=== PATIENT | male | born 1990 | race Caucasian/White ===

== ENCOUNTER 2023-07-08 16:38 | Emergency (ER) | payer MEDICAID ==
[~2023-07-08] VITALS: Ht 180.3 cm; Wt 108.9 kg
[2023-07-08 16:46] VITALS: BP 156/88; PULSE 83; RESP 18; TEMP 98.2; O2SAT 98
[2023-07-08] MEDS ORDERED: LIDOCAINE MPF 1% 10 MG/ML VIAL INJ ONE (17:15)
[2023-07-08] MEDS ORDERED: IBUPROFEN 600 MG TAB PO ONE (17:15)
[2023-07-08] MEDS ORDERED: CEPH500C16 PO (17:50)
[2023-07-08] MEDS ORDERED: BACI-418 TP (17:50)
[2023-07-08] MEDS ORDERED: SULF-59 PO (17:50)
[2023-07-08] MEDS ORDERED: IBUP-2213 PO (17:50)
== END 2023-07-08 17:56 | disposition home or self-care (01) ==
LOC: MED 16:38
DX: L03.221 Cellulitis of neck (principal); Z79.899 Other long term (current) drug therapy
CPT/HCPCS: 10060; 99284; J2001

== ENCOUNTER 2023-08-06 18:28 | Emergency (ER) | payer MEDICAID ==
[~2023-08-06] VITALS: Ht 180.3 cm; Wt 108.9 kg
[~2023-08-06 18:28] MED LIST: BACI-418 TP; CEPH500C16 PO; IBUP-2213 PO; SULF-59 PO
[2023-08-06 18:35] VITALS: BP 145/90; PULSE 82; RESP 16; TEMP 98.9; O2SAT 96
[2023-08-06] MEDS: DEXAMETHASONE 10 MG/ML VIAL IM ONE (19:16)
[2023-08-06 19:38] LABS: FLU A ANTIGEN negative (NEGATIVE)
[2023-08-06] MEDS ORDERED: AMOX500C25 PO (19:38)
[2023-08-06] MEDS ORDERED: IBUP-2213 PO (19:38)
[2023-08-06 19:39] LABS: FLU B ANTIGEN NEGATIVE (NEGATIVE)
== END 2023-08-06 19:47 | disposition home or self-care (01) ==
LOC: MED 18:28
DX: J02.0 Streptococcal pharyngitis (principal); Z20.822 Contact with and (suspected) exposure to COVID-19; Z79.899 Other long term (current) drug therapy
CPT/HCPCS: 87081; 87426; 87804; 96372; 99283; J1100

== ENCOUNTER 2023-08-26 20:48 | Emergency (ER) | payer SELFPAY ==
[~2023-08-26] VITALS: Ht 180.3 cm; Wt 108.9 kg
[~2023-08-26 20:48] MED LIST changes: +AMOX500C25 PO
[2023-08-26 20:57] VITALS: BP 140/85; PULSE 88; RESP 16; TEMP 98.7; O2SAT 100
[2023-08-26] MEDS: ACETAMINOPHEN EXTRA STRENGTH 500 MG TAB PO ONE (23:30)
[2023-08-27] MEDS: LIDOCAINE 2% 1000 MG/50 ML VIAL INJ ONE (00:16)
[2023-08-27] MEDS ORDERED: BACI-418 TP (00:19)
[2023-08-27] MEDS ORDERED: SULF-59 PO (00:19)
[2023-08-27] MEDS ORDERED: ACET-2619 PO (00:19)
[2023-08-27] MEDS: SULFAMETH/TRIMETH DS 800/160MG 1 TAB PO ONE (00:24)
[2023-08-27 00:35] VITALS: BP 140/85; PULSE 88; RESP 16; TEMP 98.7; O2SAT 100
== END 2023-08-27 00:35 | disposition home or self-care (01) ==
LOC: MED 20:48
DX: L02.512 Cutaneous abscess of left hand (principal); Z79.899 Other long term (current) drug therapy
CPT/HCPCS: 26010; 99283; J2001

== ENCOUNTER 2024-02-16 01:40 | Emergency (ER) | payer SELFPAY ==
[~2024-02-16] VITALS: Ht 182.9 cm; Wt 112.5 kg
[~2024-02-16 01:40] MED LIST changes: +ACET-2619 PO
[2024-02-16 01:51] VITALS: BP 128/76; PULSE 76; RESP 16; TEMP 97.6; O2SAT 98
--- NOTE | 2024-02-16 01:54 | NUR ---
ambulated to bed 2 after triage
[2024-02-16 01:59] VITALS: O2SAT 99
--- NOTE | 2024-02-16 01:59 | NUR ---
33YO M BIB SELF FOR ABSCESS TO L BUTTOCK. PT STATES BEGAN 3-4 DAYS AGO. PT AXO4. DENIES ANY OTHER SYMPTOMS. CALL LIGHT WITHIN REACH. SAFETY MEASURES IN PLACE. NKDA NO MED HX
[2024-02-16] MEDS: IBUPROFEN 600 MG TAB PO ONE (03:12)
[2024-02-16] MEDS: SULFAMETH/TRIMETH DS 800/160MG 1 TAB PO ONE (03:12)
[2024-02-16] MEDS: LIDOCAINE 2% 1000 MG/50 ML VIAL INJ ONE (03:15)
[2024-02-16] MEDS ORDERED: SULF-59 PO (03:47)
[2024-02-16] MEDS ORDERED: CEPH-588 PO (03:47)
--- NOTE | 2024-02-16 04:43 | NUR ---
Patient discharged with v/s stable. Written and verbal after care instructions given and explained. Patient verbalized understanding. Ambulatory with steady gait. All questions addressed prior to discharge. Advised to follow up with PMD.
== END 2024-02-16 04:43 | disposition home or self-care (01) ==
LOC: MED 01:40
DX: L03.317 Cellulitis of buttock (principal); Z79.1 Long term (current) use of non-steroidal anti-inflammatories (NSAID); Z79.2 Long term (current) use of antibiotics; Z79.899 Other long term (current) drug therapy
CPT/HCPCS: 10060; 99284; J2001